=== PATIENT | female | born 1940 | race Caucasian/White ===

== ENCOUNTER 2022-08-04 08:01 | Outpatient (CLI) | payer MEDICARE, MEDICAID, SELFPAY ==
[2022-08-04 08:23] VITALS: BP 119/49; PULSE 71; RESP 16; TEMP 36.2; O2SAT 95; BMI 22.8
[2022-08-04] MEDS: 0.9% NaCl Peripheral Flush Adult/Peds IV (09:12)
[2022-08-04] MEDS: 0.9% NaCl IVPB Med Flush (250 mL) 15 ML IV (09:12)
[2022-08-04 10:23] VITALS: BP 127/59; PULSE 67; RESP 16; TEMP 36.1; O2SAT 97
== END 2022-08-04 08:02 | disposition home or self-care (01) ==
PROVIDERS: PCP Internal Medicine Geriatric Medicine
DX: D50.9 Iron deficiency anemia, unspecified (principal)
CPT/HCPCS: 96365; J7050; A4216; J2916